=== PATIENT | male | born 1950 | race Caucasian/White ===

== ENCOUNTER 2019-04-28 22:54 | Inpatient (IN) | payer OTHER ==
[~2019-04-28] VITALS: Ht 182.9 cm; Wt 131.1 kg
[2019-04-29] MEDS ORDERED: SEROQUEL 100 M100 MG PO (01:18)
[2019-04-29] MEDS ORDERED: SEROQUEL 50 MG50 M1 PO (01:18)
[2019-04-29] MEDS ORDERED: KLOR-CON 1010 MEQ PO (01:19)
[2019-04-29] MEDS ORDERED: MIRALAX119 GM PO (01:20)
[2019-04-29] MEDS ORDERED: ZYRTEC10 M4 PO (01:20)
[2019-04-29] MEDS ORDERED: LOSARTAN POTASS50 MG PO (01:21)
[2019-04-29] MEDS ORDERED: VITAMIN D31000 UNI2 PO (01:21)
[2019-04-29] MEDS ORDERED: AMIODARONE HCL400 MG PO (01:22)
[2019-04-29] MEDS ORDERED: LOPRESSOR25 PO (01:23)
[2019-04-29] MEDS ORDERED: BAYER CHEWABLE81 MG PO (01:23)
[2019-04-29] MEDS ORDERED: SUPER THERAVIT1 EACH PO (01:24)
[2019-04-29] MEDS ORDERED: LIPITOR80 MG PO (01:25)
[2019-04-29] MEDS ORDERED: LANTUS SUBQ ×2 (01:25→01:26)
[2019-04-29] MEDS ORDERED: RIVASTIGMINE3 MG PO (01:27)
[2019-04-29] MEDS ORDERED: NOVOLOG100 UNIT/1 SUBQ (01:27)
[2019-04-29] MEDS ORDERED: NEURONTIN 300M300 M2 PO (01:28)
[2019-04-29] MEDS ORDERED: LASIX 40 MG TAB40 MG PO (01:29)
[2019-04-29] MEDS ORDERED: IPRAT-ALBUT 0.5-3 ML INH (01:30)
[2019-04-29] MEDS ORDERED: DIAZEPAM 5 MG5 MG PO (01:31)
[2019-04-29] MEDS ORDERED: SODIUM CHLORIDE3 ML INH (01:33)
[2019-04-29] MEDS ORDERED: TUSSIN DM CLEA118 ML PO (01:34)
[2019-04-29] MEDS ORDERED: EUCERIN ORIGIN250 ML (01:35)
[2019-04-29 02:29] VITALS: BP 158/84
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
[2019-04-29 09:06] VITALS: BP 149/76
--- NOTE | 2019-04-29 09:23 | NUR ---
PATIENT IN BED SLEEPING, AROUSABLE, BUT NOT FULLY AWAKE TO BE ABLE TO SWALLOW MEDICATION. DR. HERNANDEZ NOTIFIED, HE INSTRUCTED TO HOLD MEDS, AND NOT TO GIVE INSULIN IF PATIENT DID NOT EAT. ALL MEDS HELD, INCLUDING INSULIN PER DR'S INSTRUCTIONS DUE TO PATIENT DID NOT EAT BREAKFAST.
[2019-04-29 10:40] LABS: HEMATOCRIT 39.1 % (42.0-52.0); HEMOGLOBIN 13.2 gm/dL (14.0-18.0); MCH 28.6 pg (26.0-34.0); MCHC 33.7 g/dL (28.0-37.0); MCV 84.8 fL (80.0-100.0); RBC 4.61 mil/uL (4.50-6.00); RDW 14.4 % (10.5-14.5); WBC 6.7 thou/uL (4.0-11.0)
[2019-04-29 10:51] LABS: ALBUMIN 3.6 g/dL (3.4-5.0); CALCIUM 8.6 mg/dL (8.5-10.1); CREATININE 1.1 mg/dL (0.7-1.3); POTASSIUM 3.5 mmol/L (3.5-5.1); TOTAL BILIRUBIN 0.4 mg/dL (<0.1-1.0); TOTAL PROTEIN 7.1 g/dL (6.4-8.2)
[2019-04-29 14:45] VITALS: BP 149/76
[2019-04-29 19:43] VITALS: BP 162/93
--- NOTE | 2019-04-29 22:58 | NUR ---
PT RESTING IN BED UPON ARRIVAL TO SHIFT. PT AWAKENED AND ASKED FOR BFAST, PT INFORMED IT WAS NIGHT TIME AND WE PROVIDED A SNACK. PT COMPLIANT WITH HS SNACK. PT DISHEVLED, SMILING, TALKING WITH STAFF. DISCUSSED HIS PREVIOUS EXPERIENCES A FOOTBALL, RUGBY AND BOXER.
[2019-04-30 00:07] LABS: GLYCOHEMOGLOBIN (HGB A1C) 11.2 % (4.8-5.6)
--- NOTE | 2019-04-30 05:40 | NUR ---
PT AWAKENED X 2 IN NIGHT AND THEN RETURNED TO BED.
[2019-04-30 08:28] VITALS: BP 148/72
--- NOTE | 2019-04-30 15:48 | NUR ---
Sleeping without s/o distress. Awakens easily. Cooperative. Orientated to self only. Answers questions appropriately. Ambulates to dining room without difficulty. Denies SI/HI, pain. Breath sounds clear t/o, bilaterally equal. Color pink with brisk capillary refill and palpable peripheral pulses. Regular HR auscultated. Active bowel sounds over large rounded abdomen. 1230 Very focused on wanting baseball cap back out of locker. Wants rationale as to why he can not have it. Addressed with nurse clinical assessment manager, referred to Dr. Holm. Dr. Holm discussed with pt, will be allowed to wear in unit. 1550 Currently sleeping soundly in room without s/o distress.
--- NOTE | 2019-04-30 16:12 | NUR ---
SW attempted to meet pt and complete assessment with him; she attempted to do so the day before also. Pt was in his room asleep. SW contacted pt's son. No answer. SW left [facility]. SW team will continue to follow pt during his stay.
[2019-04-30 20:38] VITALS: BP 134/75
--- NOTE | 2019-05-01 04:19 | NUR ---
ASSUMED CARE ON 04/30/19 @ 19:15. SITTING IN DAY ROOM WATCHING TV AND OBSERVING PEERS AND STAFF. FSBS 360 @ 20:30. PT REQUESTED DIAZEPAM AND REFUSED TO TAKE PO MEDS OR INSULIN UNLESS HE GOT DIAZEPAM. EDUCATION PROVIDED REGARDING BLOOD SUGAR BEING HIGH AND INSULIN IS REQUIRED TO KEEP FROM GETTING DANGEROUSLY HIGH. PATIENT CONTINUED TO REFUSE. A SECOND NURSE ATTEMPTED TO GIVE PO MEDS AND SUB q INSULIN WITHOUT SUCCESS.
--- NOTE | 2019-05-01 04:45 | NUR ---
SARAH GONZALEZ CALLED [phone] TO OBTAIN CONSENT TO FORCE INJECTIONS OF INSULIN AND PSYCHOTROPIC MEDICATIONS. NO ANSWER, LEFT MESSAGE ON VOICE MAIL TO CALL ON 05/01/19 @ 1848.
[2019-05-01 05:38] VITALS: BP 134/75
[2019-05-01 05:46] VITALS: BP 134/75
[2019-05-01 15:19] VITALS: BP 138/77
--- NOTE | 2019-05-01 19:07 | NUR ---
Alert and orientated to self. Requesting diazapam. Reminded of discussions with Dr. Holm yesterday. Denies SI/HI, pain but states he is anxious. Cooperative with care. BENTON Ruiz here mid morning for rounds and he approached her about diazapam. She wanted clarification about what Dr. Holm had stated yesterday r/t diazapam and when I was providing information, pt kept stating: "I am talking to her, not you." He became upset when BENTON Ruiz said he was not going to get diazapam and went to his room and fell asleep. When I approached him for his assessment he was cooperative and asked when the leather crafter would be here. He stated he wanted to take a shower and have his fingernails and toenails clipped. He was cooperative with shower and having his nails cut. Breath sounds clear t/o, diminished slightly in lower lobes. No s/o resp distress. Color pink with brisk capillary refill and +2/+4 pulses. Active bowel sounds over large rounded abdomen. Ambulating without difficulty. Conversive with staff and peers. Participating in group this afternoon, coloring with peers. Very cooperative until approached with 1700 meds at approximately 1630. He calmly and firmly stated he was not going to take his insulin or other meds unless he got his diazapam. Spoke with him at length without any progress in taking meds. States it is nothing against me, it is a problem he has with the doctor. Repeatedly states that he is not going to take meds without getting diazapam and that he has been taking it for 14 years. Reapproached at 1730 without any success in taking meds. After dinner he went back to his room and fell asleep. BENTON Ruiz called, messages left x2 for her to call [facility]. Approached him again and he was readily compliant with taking insulin, potassium and gabapentin without any mention of diazapam. BENTON Ruiz responded to message, asked that son who is DPOA be notified and obtain order to forcibily give medications if needed. Message left for son Fransico Jansen to call unit.
[2019-05-01 20:00] VITALS: BP 137/78
--- NOTE | 2019-05-01 20:04 | NUR ---
ASSUMED CARE @ 19:20 ON 05/01/19. IN BED, AWAKENS TO VOICE. HRRR, LUNGS CTA, BS NORMOACTIVE X 4 Q. REPORTS BM AND SHOWER TODAY. BED IN LOW POSITION, BED ALARM SET.
[2019-05-01 23:03] VITALS: BP 137/78
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
--- NOTE | 2019-05-02 05:17 | NUR ---
SLEPT 7 HOURS OVERNIGHT
--- NOTE | 2019-05-02 05:19 | NUR ---
AWAKENED IN THE NOC, AND PATIENT ASKED FOR MEDICINE TO HELP HIM SLEEP AND RELIEVE HIS BACK PAIN. TYLENOL AND SEROQUEL PROVIDED, WHICH THE PATIENT THEN REFUSED.
[2019-05-02 09:03] VITALS: BP 153/86
[2019-05-02 12:11] VITALS: BP 153/86
--- NOTE | 2019-05-02 12:21 | NUR ---
ASSUMED CARE AT 0700 THIS MORNING. PT. UP FOR MEALS, COOPERATIVE WITH TAKING MEDICATIONS AND INSULIN. HE GOES BACK TO BED AFTER EATING. NO ACTING OUT BEHAVIORS NOTED OF THIS WRITING. INTERACTING UPON APPROACH ONLY. HE REMAINS SECLUSIVE. DENIES HI/SI OR AVH AT THIS TIME.
--- NOTE | 2019-05-02 19:30 | NUR ---
ASSUMED CARE AT 19:15 ON 05/02/19. SITTING IN THE DAY ROOM AT A TABLE, EYES CLOSED HEAD BOWED. AWAKENS TO VOICE AND COOPERATES WITH ASSESSMENT. IS SLOW TO (UNDERSTAND/COMPLY), UNSURE WHICH IS THE CASE, WILL CONTINUE TO OBSERVE.
--- NOTE | 2019-05-02 19:32 | NUR ---
ASSUMED CARE @ 19:15 ON 05/02/19. SITTING IN DAY ROOM ON THE COUCH WATCHING TV. RECEIVED A PHONE CALL FROM FAMILY. REPORTS SON WILL BE COMMING TO VISIT [facility].
[2019-05-02 19:53] VITALS: BP 123/45
--- NOTE | 2019-05-02 23:17 | NUR ---
AFTER HIS EVENING SNACK, PATIENT REQUESTED THAT I ORDER HIM A PIZZA. EDUCATION PROVIDED THAT PT IS IN A HOSPITAL, AND THAT HE NEEDS TO EAT THE FOOD THE HOSPITAL PREPARES. OFFERED A TURKEY SANDWICH, AND IT WILL BE PROVIDED AFTER HE TAKES HIS MEDICINE. PATIENT REFUSED HIS MEDICINE, STATING THAT IT IS NOT DIAZEPAM, AND HE DOES NOT ANY OTHER MEDICINE. PATIENT SAT ON THE COUCH WATCHING FOOTBALL, AND RETIRED @ APROXIMATELY 22:40. BED IN LOW POSITION, WILL MONITOR Q 12 MINUTES FOR PATIENT SAFETY.
[2019-05-02 23:40] VITALS: BP 123/45
--- NOTE | 2019-05-03 05:36 | NUR ---
SLEPT 6 HOURS OVERNIGHT
--- NOTE | 2019-05-03 07:30 | NUR ---
Assumed care of patient this am. Patient ambulatory without assistance. Patient affect normal. Patient is adherent with medication regimen. Patient requesting diazapam this am. Patient takes medications whole. Patient assessment shows clear breath sounds bilaterally and bowel sounds present. Heart tones heard on auscultation s1 and s2. Patient denies pain.
[2019-05-03 08:00] VITALS: BP 149/79
[2019-05-03 08:09] VITALS: BP 149/79
--- NOTE | 2019-05-03 13:48 | NUR ---
MARLO contacted Fransico to schedule a family meeting with pt, family, and doctor. No answer. Left ms. MARLO team will continue to follow pt during his stay.
--- NOTE | 2019-05-03 20:13 | NUR ---
ASSUMED CARE @ 19:15 ON 05/03/19. PATIENT IN HIS ROOM IN BED. UP TO DAY ROOM, BROTHER CALLED, AND PT VERBALLY AGREED FOR US TO GIVE HIM INFORMATION REGARDING PATIENT. SPOKE TO BROTHER ON THE PHONE.
[2019-05-03 20:15] VITALS: BP 139/69
--- NOTE | 2019-05-04 00:11 | NUR ---
PATIENT ACCEPTED 60 UNITS OF GLARGINE @ 20:15. PATIENT REFUSED PO MEDS. PATIENT ACCEPTED PO MEDS @ 22:30. PROVIDED TURKEY SANDWICH FOR AN EVENING SNACK. PATIENT SAYING THAT HE WANTS TO LEAVE THE FACILITY TO GO GET A PIZZA. EDUCATION PROVIDED THAT PATIENTS ARE NOT ALLOWED TO LEAVE THE HOSPITAL TO GO TO [facility]. REQUESTED DOUBLE PORTIONS OF MEAT AND VEGETABLES IN MEALS, RECEIVED AN ORDER FROM DR. ELLIOTT FOR SAME.
--- NOTE | 2019-05-04 00:19 | NUR ---
RECEIVED AN ORDER FROM DR. ELLIOTT FOR 7.5MG HALDOL IM, AND 1MG ATIVAN IM, TO BE GIVEN TOGETHER. SECURITY PERSONNEL TO ASSIST WITH ADMINISTRATION. GIVEN @ 0010 WITH X2 SECURITY ON STAND BY. PATIENT COOPERATED WITH ADMINISTRAION. EDUCATION PROVIDED TO PATIENT TO STAY IN BED, DROWSYNESS AND SLEEPINESS MAY OCCUR. WILL CONTINUE TO MONITOR.
[2019-05-04 02:41] VITALS: BP 139/69
--- NOTE | 2019-05-04 05:44 | NUR ---
SLEPT 9.6 HOURS OVERNIGHT
[2019-05-04 05:48] VITALS: BP 139/69
--- NOTE | 2019-05-04 07:30 | NUR ---
Assumed care of patient this am. Patient in bed sleeping. Patient calm, content, and pleasant for assessment. Patient ambulates with out assistance. Patient takes medications whole and is adherent to scheduled times. Patient denies pain. Patient ate 100% of breakfast. Patient encouraged to shower today. Patient went back to bedroom after breakfast and layed down. Patient encouraged to attend group meetings. Patient on room lockout.
[2019-05-04 08:00] VITALS: BP 146/81
[2019-05-04 09:04] VITALS: BP 146/81
[2019-05-04 20:20] VITALS: BP 156/81
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
[2019-05-05 07:30] VITALS: BP 142/72
--- NOTE | 2019-05-05 12:50 | NUR ---
MARLO received a call from Jabari Quintero with [facility] asking her to fax updates for pt to [phone]. SW faxed updates and med list to the fax number provided for IC. SW will continue to follow pt during his stay.
--- NOTE | 2019-05-05 16:27 | NUR ---
ASSUMED PATIENT CARE AT 0700. ALERT ORIENT WITH CONFUSED SOME TIMES. COOPERATIVE. AMBULATED IN ROOM AND DINIMG ROOM GAIT STEADY. GOOD APPATITE. NO DISDRESS NOTED. SLOWLY TOWARDS POC GOALS.
[2019-05-05 21:11] VITALS: BP 153/87
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
[2019-05-06 07:00] VITALS: BP 145/78
--- NOTE | 2019-05-06 08:37 | EKG ---
[place] [address] [facility] [place] [address] ELECTROCARDIOGRAM REPORT Name: CLAUDIA GONZALEZ Room #: 52- ADM IN M.R.#: [id number] Admission: 04/29/19 Attend Phys: Jorge Luis Holm DO Discharge: Date of : 50 Report #: [id number] THIS REPORT FOR: //name// [facility] Test Date: 2019-05-05 Test Time: 12:28:01 Pat Name: CLAUDIA GONZALEZ Department: Room: [facility] Gender: M Slubber Machine Operator: Jaime BRADY : 1950 Requested By: Jorge Luis Holm Order Number: [id number] MD: Micha Ivan Measurements Intervals [place] Rate: 60 P: 4 [place]: 194 QRS: 39 QRSD: 104 T: 113 QT: 450 QTc: 450 Interpretive Statements Sinus rhythm Atrial premature complex Nonspecific T abnormalities No previous ECG available for comparison Electronically Signed On 05-06-2019 8:36:59 CDT by Micha Ivan [email or web address] <ELECTRONICALLY SIGNED> By: Micha Ivan MD, [facility] 05/06/19 0836 1228 1228 Micha Ivan MD, FACC /EPI
--- NOTE | 2019-05-06 13:38 | NUR ---
MARLO contacted Jabari Quintero with [facility] for d/c planning. He said he will arrange transportation for Jabari to return to [facility] at 11 am on 05/07/2019. MARLO team will continue to follow pt during his stay.
--- NOTE | 2019-05-06 13:44 | NUR ---
MARLO contacted Shadedustin Jansen and left a msg on his vm that his father will be returning to [place] 05/07/19 @ 11am SW team will continue to follow pt during his stay.
--- NOTE | 2019-05-06 13:45 | NUR ---
on 05/04 MARLO had an error in which she put the information below in another chart that reads as follows: " MARLO was asked by the psych doctor to c contact pt's son Shade in an attempt to get into contact with Fransico. MARLO and psych doctor contacted Shade Jansen at [phone]. shade said he is the DPOA and will email the document to SW email. He also said he will be in regular contact with the facility for his father's care. MARLO received a pdf version of pt's DPOA via email. SW team will continue to follow pt during his stay."
[2019-05-06 14:55] VITALS: BP 145/78
--- NOTE | 2019-05-06 15:05 | NUR ---
0705 Report received from overnight shift, Patient ate breakfast took medication without incidence. Patient kept asking to go to his room to sleep. Patient has lockout room orders from Dr Mustafa. Patient has had no aggression, watch tv in day room.
[2019-05-06 20:15] VITALS: BP 112/47
[2019-05-07 00:26] VITALS: BP 112/47
--- NOTE | 2019-05-07 03:51 | NUR ---
PT OUT IN DAYROOM AND PERIODICALLY WANDERING THE HALLS. IN AND OUT OF ROOM, ASKING FOR ADDITIONAL SNACKS. RESPONDED WELL TO BEING DENIED ADDITION FOOD. WATCHED TV AND WENT TO BED AFTER TAKING HS MEDS. HAS SLEPT WELL THROUGH THE NIGHT.
[2019-05-07 07:22] VITALS: BP 141/73
[2019-05-07 09:15] VITALS: BP 152/86
--- NOTE | 2019-05-07 10:36 | NUR ---
SALES/MARKETING witnessed patient fall as [facility] Patient was walking towards empty seat on couch when he made an abrupt turn opposite of couch, tripping over another patient's walker. Patient slowly landed on floor and sat on his bottom. Nursing present to assist patient immediately after fall.
[2019-05-07] MEDS ORDERED: CYCLOBENZAPRINE5 MG PO (10:55)
[2019-05-07] MEDS ORDERED: AMIODARONE HCL400 MG PO (10:56)
[2019-05-07] MEDS ORDERED: METOPROLOL SUCC25 M1 PO (10:56)
[2019-05-07] MEDS ORDERED: DIVALPROEX SOD500 M1 PO (10:57)
[2019-05-07] MEDS ORDERED: HALOPERIDOL 5 MG5 MG PO (10:57)
[2019-05-07] MEDS ORDERED: LANTUS SUBQ (10:58)
[2019-05-07 11:00] VITALS: BP 142/71
--- NOTE | 2019-05-07 14:02 | NUR ---
0730 Patient up and ambulating to dining room. Cooperative and compliant. Alert without s/o distress. Orientated to self and place, not to day. States he doesn't know he is being transferred today but then asked if he was going to [facility]. Breath sounds clear t/o, bilaterally equal. Color pink with brisk capillary refill and palpable peripheral pulses. Reg HR auscultated. Slight nonpitting edema to lower extremities. Active bowel sounds over large, soft, rounded abdomen. Pt. independent with toileting, states he had BM this AM, declines Miralax. Void this AM. 0915 Patient participating in activity group when he went to ambulate to couch independently. Nancy Lawrence stated that he made a sharp turn and at the same time another patient moved his walker in the path of this patient. Patient tripped on walker and fell to his knees "gently". Two other staff members in room went to assist patient. He was able to independently pull himself up using a dining room chair and then ambulated to the couch. States he is fine and does not have pain. No s/o injury. Vital signs obtained. BS obtained. Dr. Holm notified as well as supervisor sewing room. Message left for son Shade Jansen, SARAH to call [facility] regarding his father's treatment. 1100 Patient ambulating without s/o distress. Wants belongings so that he can be transferred. 1135 Discharged per WC with transport service. No s/o distress. Report called
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
== END 2019-05-07 11:40 | DRG 884 ==
LOC: SBH
PROVIDERS: Hospitalist; ADMIT Psychiatry & Neurology Psychiatry
DX: F01.51 Vascular dementia, unspecified severity, with behavioral disturbance (principal); F07.81 Postconcussional syndrome; E11.9 Type 2 diabetes mellitus without complications; E78.5 Hyperlipidemia, unspecified; F41.9 Anxiety disorder, unspecified; I10 Essential (primary) hypertension; T50.905A Adverse effect of unspecified drugs, medicaments and biological substances, initial encounter; I48.91 Unspecified atrial fibrillation; Z23 Encounter for immunization; Z87.820 Personal history of traumatic brain injury; Z79.899 Other long term (current) drug therapy
CPT/HCPCS: 10880